=== PATIENT | female | born 1990 | race African-American/Black ===

== ENCOUNTER 2019-03-01 09:06 | Emergency (ER) | payer OTHER ==
[2019-03-01 09:25] VITALS: BP 137/82; PULSE 90; TEMP 99.8; BMI 31.8
--- NOTE | 2019-03-01 10:57 | PDOC ---
History of Present Illness - General Chief Complaint: Cold Symptoms Stated Complaint: COLD SYMPTOMS Time Seen by Provider: 03/01/19 09:59 History Source: Patient Exam Limitations: No Limitations - History of Present Illness Initial Comments: 03/01/19 10:53 19-year-old female complains of chills fever of 102 yesterday along with cough and myalgia. Patient has no other complaints at this time except for mild frontal headache. Other children at home with similar symptoms. Otherwise denies smoking history recent travel recent illness. Is this a multiple visit Asthma Patient?: No Timing/Duration: reports: yesterday Severity: reports: mild Associated Symptoms: reports: cough, fever/chills, headache Past History - Travel Traveled outside of the country in the last 30 days: No Close contact w/someone who was outside of country & ill: No - Past Medical History Allergies/Adverse Reactions: Allergies Allergy/AdvReac Type Severity Reaction Status Date / Time peanut Allergy Severe anaphylacti Verified 03/01/19 09:25 c Home Medications: Ambulatory Orders Ibuprofen [Motrin -] 400 mg PO QID 10/19/14 Anemia: No Asthma: No Cancer: No Cardiac Disorders: No CVA: No COPD: No CHF: No Dementia: No Diabetes: No GI Disorders: No Disorders: No HTN: No Hypercholesterolemia: No Liver Disease: No Seizures: No Thyroid Disease: No - Surgical History Abdominal Surgery: No Appendectomy: No Cardiac Surgery: No Cholecystectomy: No - Reproductive History Expected Date of Delivery: 01/21/12 (#): 3 Para: 2 - Immunization History Immunization Up to Date: Yes - Psycho Social/Smoking Cessation Hx Smoking Status: No Smoking History: Never smoked Have you smoked in the past 12 months: No Number of Cigarettes Smoked Daily: 0 Information on smoking cessation initiated: No Hx Alcohol Use: No Drug/Substance Use Hx: No Substance Use Type: None Hx Substance Use Treatment: No Patient Lives Alone: No Lives with/in: spouse/SO Review of Systems - Review of Systems Able to Perform ROS?: Yes Constitutional: Yes: Fever HEENTM: No: Symptoms Reported Respiratory: Yes: Cough Cardiac (ROS): No: Symptoms Reported ABD/GI: No: Symptoms Reported : No: Symptoms Reported Musculoskeletal: Yes: Joint Pain, Muscle Pain Integumentary: No: Symptoms Reported Neurological: No: Symptoms reported Endocrine: No: Symptoms Reported Hematologic/Lymphatic: No: Symptoms Reported *Physical Exam - Vital Signs Last Vital Signs Temp Pulse Resp BP Pulse Ox 99.8 F H 90 16 137/82 100 03/01/19 09:23 03/01/19 09:23 03/01/19 09:23 03/01/19 09:23 03/01/19 09:23 - Physical Exam General Appearance: Yes: Nourished, Appropriately Dressed. No: Apparent Distress HEENT: negative: Pale Conjunctivae Neck: positive: Supple Respiratory/Chest: positive: Lungs Clear, Normal Breath Sounds. negative: Respiratory Distress Cardiovascular: positive: Regular Rhythm, Regular Rate. negative: Murmur Gastrointestinal/Abdominal: positive: Soft. negative: Tenderness Extremity: positive: Normal Inspection Integumentary: positive: Normal Color, Warm, Moist Neurologic: positive: Motor Strength 5/5 (ambulatory) Medical Decision Making - Medical Decision Making 03/01/19 10:56 Chief complaint: Cough, fever, arthralgia myalgias since yesterday. Similar symptoms with children at home Exam: Vital signs stable lungs clear to auscultation Plan: Influenza swab sent 03/01/19 12:04 Laboratory Tests 03/01/19 10:15 Influenza A (Rapid) Negative Influenza B (Rapid) Positive A Discharge - Discharge Information Problems reviewed: Yes Clinical Impression/Diagnosis: Influenza Condition: Good Disposition: HOME - Follow up/Referral Referrals: Lino Frank MD [Primary Care Provider] - - Patient Discharge Instructions Patient Printed Discharge Instructions: DI for Influenza -- Adult Additional Instructions: Please take Tylenol Motrin for discomfort take Tamiflu as prescribed. Take Robitussin-AC also for cough. Wash hands and cover mouth when coughing. - Post Discharge Activity
== END 2019-03-01 12:08 | disposition home or self-care (01) ==
LOC: JERFT 09:06
DX: J10.1 Influenza due to other identified influenza virus with other respiratory manifestations (principal)
CPT/HCPCS: 87804; 99281-25

== ENCOUNTER 2020-12-29 09:59 | Emergency (ER) | payer OTHER ==
[2020-12-29 10:17] VITALS: BP 172/76; PULSE 79; TEMP 98; BMI 38.9
[2020-12-29] MEDS ORDERED: KETOROLAC TROMETHAMINE 30 MG/1 ML VIAL IVPUSH ONE (10:31)
[2020-12-29] MEDS ORDERED: KETOROLAC TROMETHAMINE 30 MG/1 ML VIAL ONE (10:38)
[2020-12-29 11:26] LABS: BASO % 0.6 % (0-2.0); EOS % 5.6 % (0-4.5); HEMATOCRIT 31.9 % (32.4-45.2); HEMOGLOBIN 10.8 GM/dL (10.7-15.3); LYMPH % 30.5 % (8-40); MCH 25.8 pg (25.7-33.7); MEAN PLT VOLUME 7.9 fl (7.5-11.1); MONO % 5.9 % (3.8-10.2); NEUT % 57.4 % (42.8-82.8); PLATELET COUNT 299 10^3/uL (134-434); RBC 4.19 M/mm3 (3.60-5.2); RDW 16.1 % (11.6-15.6); WHITE BLOOD COUNT 6.1 K/mm3 (4.0-10.0)
[2020-12-29 11:30] LABS: EPI CELLS 29 /uL (0-25.1); HYALINE CASTS 1 /uL (0-3.1); URINE APPEARANCE CLOUDY; URINE BILIRUBIN 1+ (NEGATIVE); URINE COLOR RED; URINE GLUCOSE (UA) NEGATIVE (NEGATIVE); URINE KETONE NEGATIVE (NEGATIVE); URINE LEUK ESTERASE 1+ (NEGATIVE); URINE NITRITE POSITIVE (NEGATIVE); URINE PROTEIN 3+ (NEGATIVE); URINE RBC 44274 /uL (0-23.9); URINE UROBILINOGEN 0.2 mg/dL (0.2-1.0); URINE WBC 46 /uL (0-25.8)
[2020-12-29 11:32] LABS: HCG,QUALITATIVE URINE Negative
[2020-12-29 11:33] LABS: PROTHROMBIN TIME (PATIENT) 11.7 SEC (9.7-13.0)
[2020-12-29 11:46] LABS: ALBUMIN 3.7 g/dl (3.4-5.0)
[2020-12-29 11:49] LABS: CREATININE 1.1 mg/dL (0.55-1.3)
[2020-12-29 11:51] LABS: BILIRUBIN,TOTAL 0.3 mg/dL (0.2-1)
[2020-12-29 16:28] LABS: URINE BACTERIA 0 /uL (0-1359)
== END 2020-12-29 14:07 | disposition home or self-care (01) ==
LOC: JER 09:59
PROC: 3E0333Z Introduction of Anti-inflammatory into Peripheral Vein, Percutaneous Approach (ICD-10-PCS; principal; 2020-12-29)
DX: N39.0 Urinary tract infection, site not specified (principal); R10.84 Generalized abdominal pain; D25.9 Leiomyoma of uterus, unspecified
CPT/HCPCS: 36415; 76856-TC; 80053; 81003; 84703; 85025; 85610; 86850; 86900; 86901; 99284-25

== ENCOUNTER 2021-02-08 09:28 | Inpatient (IN) | payer OTHER ==
[2021-02-08] MEDS ORDERED: ACETAMINOPHEN 1000 MG/100 ML BAG IVPB ONE (11:42)
[2021-02-08] MEDS ORDERED: ONDANSETRON 4 MG/2 ML VIAL IVPUSH ONE (11:42)
[2021-02-08] MEDS ORDERED: ACETAMINOPHEN INJECTION 100 ML IVPB ONE (11:50)
[2021-02-08] MEDS ORDERED: ONDANSETRON 4 MG/2 ML VIAL ONE (11:50)
[2021-02-08 12:47] LABS: BASO % 0.5 % (0-2.0); EOS % 0.5 % (0-4.5); HEMATOCRIT 27.9 % (32.4-45.2); HEMOGLOBIN 9.4 GM/dL (10.7-15.3); LYMPH % 23.8 % (8-40); MCH 24.9 pg (25.7-33.7); MCHC 33.7 g/dl (32.0-36.0); MEAN PLT VOLUME 8.7 fl (7.5-11.1); MONO % 8.3 % (3.8-10.2); NEUT % 66.9 % (42.8-82.8); PLATELET COUNT 233 10^3/uL (134-434); RBC 3.77 M/mm3 (3.60-5.2); RDW 16.5 % (11.6-15.6); WHITE BLOOD COUNT 4.3 K/mm3 (4.0-10.0)
[2021-02-08] MEDS ORDERED: KETOROLAC TROMETHAMINE 15 MG/ML VIAL IVPUSH ONE (13:20)
[2021-02-08] MEDS ORDERED: KETOROLAC TROMETHAMINE 30 MG/1 ML VIAL ONE (13:26)
[2021-02-08 14:20] LABS: BLOOD UREA NITROGEN 29.6 mg/dL (7-18)
[2021-02-08 14:24] LABS: CREATININE 3.1 mg/dL (0.55-1.3)
[2021-02-08] MEDS ORDERED: morphine CARPU-JECT 4 MG/1 ML DISP.SYRIN IVPUSH ONE (15:44)
[2021-02-08] MEDS ORDERED: ACETAMINOPHEN 325 MG TABLET (FP) PO PRN (15:47)
[2021-02-08] MEDS ORDERED: morphine SULFATE 4 MG/ML VIAL ONE (16:07)
[2021-02-08 16:12] LABS: URINE APPEARANCE CLEAR; URINE BILIRUBIN NEGATIVE (NEGATIVE); URINE COLOR YELLOW; URINE GLUCOSE (UA) NEGATIVE (NEGATIVE); URINE KETONE NEGATIVE (NEGATIVE); URINE LEUK ESTERASE NEGATIVE (NEGATIVE); URINE NITRITE NEGATIVE (NEGATIVE); URINE PROTEIN NEGATIVE (NEGATIVE); URINE UROBILINOGEN 0.2 mg/dL (0.2-1.0)
[2021-02-08 16:38] LABS: INR 1.11 (0.83-1.09); PROTHROMBIN TIME (PATIENT) 12.5 SEC (9.7-13.0)
[2021-02-08 16:40] LABS: ACTIVATED PTT 24.4 SECONDS (25.2-36.5)
[2021-02-08] MEDS ORDERED: CEFTRIAXONE 1 GM/50 ML BAG ONE (18:28)
[2021-02-08] MEDS: CEFTRIAXONE 1 GM in DEXTROSE 5%-WATER - 50 ML IVPB SCH (18:34)
[2021-02-09 02:06] VITALS: BMI 42.7
[2021-02-09] MEDS ORDERED: PROPOFOL 20 ML ONE ×2 (08:01)
[2021-02-09] MEDS ORDERED: LIDOCAINE HCL/PF 2% SDV 5ML VIAL ONE (08:01)
[2021-02-09] MEDS ORDERED: DEXAMETHASONE SOD PHOSPHATE 4 MG/1 ML VIAL ONE (08:01)
[2021-02-09] MEDS ORDERED: KETOROLAC TROMETHAMINE 30 MG/1 ML VIAL ONE (08:01)
[2021-02-09] MEDS ORDERED: MIDAZOLAM HCL 2 MG/2 ML SINGLE DOSE VIAL ONE (08:02)
[2021-02-09] MEDS ORDERED: IOHEXOL 180 MG/1 ML ML IJ ONE (09:15)
[2021-02-09] MEDS ORDERED: ONDANSETRON 4 MG/2 ML VIAL IVPUSH PRN (09:38)
[2021-02-09] MEDS ORDERED: ACETAMINOPHEN 1000 MG/100 ML BAG IVPB ONE (09:38)
[2021-02-09] MEDS ORDERED: LABETALOL HCL 5 MG/1 ML (100MG/20 ML VIAL) IVPUSH PRN ×2 (09:40→09:44)
[2021-02-09] MEDS ORDERED: LABETALOL HCL 5 MG/1 ML (100MG/20 ML VIAL) IVPUSH ONE ×3 (09:41→10:20)
[2021-02-09] MEDS: LACTATED RINGERS SOLUTION 1,000 ML IV SCH ×2 (09:45→21:58)
[2021-02-09] MEDS ORDERED: ONDANSETRON 4 MG/2 ML VIAL IVPUSH ONE (09:45)
[2021-02-09] MEDS ORDERED: PROMETHAZINE HCL 25 MG/1 ML VIAL IVPUSH PRN (09:49)
[2021-02-09] MEDS ORDERED: PROMETHAZINE HCL 25 MG/1 ML VIAL IVPUSH ONE (09:55)
[2021-02-09] MEDS ORDERED: PROMETHAZINE HCL 25 MG/1 ML VIAL ONE (09:59)
[2021-02-09] MEDS ORDERED: CHOLECALCIFEROL (VIT D3) 1,000 UNIT (25 MCG) TABLET PO SCH (10:00)
[2021-02-09] MEDS ORDERED: ASCORBIC ACID 500 MG TABLET (FP) PO SCH (10:00)
[2021-02-09] MEDS: CEFTRIAXONE 1 GM in DEXTROSE 5%-WATER - 50 ML IVPB SCH ×2 (10:00→10:43)
[2021-02-09] MEDS ORDERED: cefTRIAXone SODIUM 1 GM VIAL ONE (10:31)
[2021-02-09] MEDS ORDERED: DEXTROSE 5%-WATER - 50 ML IVPB ONE (10:31)
[2021-02-09] MEDS ORDERED: BISACODYL 5 MG TABLET.DR (FP) PO PRN (13:51)
[2021-02-09] MEDS: ACETAMINOPHEN 325 MG TABLET (FP) PO PRN ×2 (14:00→18:23)
[2021-02-09 15:21] LABS: BASO % 0.2 % (0-2.0); HEMATOCRIT 28.1 % (32.4-45.2); HEMOGLOBIN 9.2 GM/dL (10.7-15.3); MCH 24.5 pg (25.7-33.7); MEAN CELL VOLUME 74.4 fl (80-96); MEAN PLT VOLUME 8.5 fl (7.5-11.1); MONO % 4.4 % (3.8-10.2); NEUT % 81.4 % (42.8-82.8); PLATELET COUNT 221 10^3/uL (134-434); RBC 3.77 M/mm3 (3.60-5.2); RDW 16.1 % (11.6-15.6); WHITE BLOOD COUNT 4.1 K/mm3 (4.0-10.0)
[2021-02-09 15:46] LABS: ALBUMIN 3.7 g/dl (3.4-5.0); CALCIUM 8.2 mg/dL (8.5-10.1)
[2021-02-09 15:47] LABS: BLOOD UREA NITROGEN 23.5 mg/dL (7-18)
[2021-02-09 15:49] LABS: CREATININE 2.4 mg/dL (0.55-1.3)
[2021-02-09 15:51] LABS: BILIRUBIN,TOTAL 0.2 mg/dL (0.2-1); TOT PROT 6.9 g/dl (6.4-8.2)
[2021-02-09] MEDS: ONDANSETRON 4 MG/2 ML VIAL IVPUSH PRN (20:59)
[2021-02-09] MEDS: ASCORBIC ACID 500 MG TABLET (FP) PO SCH (21:49)
[2021-02-09] MEDS: POLYETHYLENE GLYCOL (HEALTHYLAX) 3350 17 GM PACKET PO SCH (21:50)
[2021-02-09] MEDS ORDERED: POLYETHYLENE GLYCOL 3350 119 GM BTL PO SCH (22:00)
[2021-02-09] MEDS ORDERED: DOCUSATE SODIUM 100 MG CAPSULE (FP) PO SCH (22:00)
[2021-02-09] MEDS ORDERED: traMADol HCL 50 MG TABLET PO ONE (22:12)
[2021-02-10] MEDS ORDERED: cefTRIAXone SODIUM 1 GM VIAL ONE (09:16)
[2021-02-10] MEDS ORDERED: DEXTROSE 5%-WATER - 50 ML IVPB ONE (09:16)
[2021-02-10] MEDS: CEFTRIAXONE 1 GM in DEXTROSE 5%-WATER - 50 ML IVPB SCH (09:25)
[2021-02-10] MEDS: ASCORBIC ACID 500 MG TABLET (FP) PO SCH (09:26)
[2021-02-10] MEDS: ACETAMINOPHEN 325 MG TABLET (FP) PO PRN (09:26)
[2021-02-10] MEDS: POLYETHYLENE GLYCOL (HEALTHYLAX) 3350 17 GM PACKET PO SCH (09:43)
[2021-02-10 09:44] VITALS: TEMP 99.3
[2021-02-10] MEDS ORDERED: CHOLECALCIFEROL (VIT D3) 1,000 UNIT (25 MCG) TABLET PO SCH (10:00)
[2021-02-10 10:28] LABS: BASO % 0.5 % (0-2.0); EOS % 0.1 % (0-4.5); HEMATOCRIT 29.4 % (32.4-45.2); HEMOGLOBIN 9.6 GM/dL (10.7-15.3); LYMPH % 19.4 % (8-40); MCH 24.2 pg (25.7-33.7); MCHC 32.7 g/dl (32.0-36.0); MEAN CELL VOLUME 73.9 fl (80-96); MEAN PLT VOLUME 8.2 fl (7.5-11.1); MONO % 6.9 % (3.8-10.2); NEUT % 73.1 % (42.8-82.8); PLATELET COUNT 243 10^3/uL (134-434); RBC 3.97 M/mm3 (3.60-5.2); WHITE BLOOD COUNT 5.7 K/mm3 (4.0-10.0)
[2021-02-10 10:48] LABS: ALBUMIN 3.6 g/dl (3.4-5.0); CALCIUM 8.3 mg/dL (8.5-10.1)
[2021-02-10 10:49] LABS: BLOOD UREA NITROGEN 16.5 mg/dL (7-18); MAGNESIUM 1.7 mg/dL (1.8-2.4)
[2021-02-10 10:52] LABS: CREATININE 2.3 mg/dL (0.55-1.3)
[2021-02-10 10:53] LABS: BILIRUBIN,TOTAL 0.4 mg/dL (0.2-1); TOT PROT 7.3 g/dl (6.4-8.2)
[2021-02-10 15:32] VITALS: BP 150/90; PULSE 95
[2021-02-10] MEDS: ONDANSETRON 4 MG/2 ML VIAL IVPUSH PRN (15:37)
[2021-02-10] MEDS ORDERED: MAGNESIUM OXIDE 400 MG TABLET (FP) PO ONE (15:51)
[2021-02-10] MEDS ORDERED: AMOX TR/POT CLAV 500MG/125MG TABLETS (FP) PO SCH (17:30)
== END 2021-02-10 17:36 | disposition home or self-care (01) | DRG 469 ==
LOC: JER 09:28 → JERBED 15:30 → J5S 21:08
PROVIDERS: ADMIT Internal Medicine; ATTEND Nurse Practitioner Acute Care
PROC: 0T788DZ Dilation of Bilateral Ureters with Intraluminal Device, Via Natural or Artificial Opening Endoscopic (ICD-10-PCS; principal; 2021-02-09 08:00)
DX: N17.9 Acute kidney failure, unspecified (principal); E66.01 Morbid (severe) obesity due to excess calories; D50.9 Iron deficiency anemia, unspecified; I10 Essential (primary) hypertension; N13.1 Hydronephrosis with ureteral stricture, not elsewhere classified; D25.9 Leiomyoma of uterus, unspecified; U07.1 COVID-19; D64.9 Anemia, unspecified; Z68.41 Body mass index [BMI] 40.0-44.9, adult
CPT/HCPCS: 36415; 76000-TC-FY; 76775-TC; 80048; 80053; 81003; 82728; 83540; 83550; 83735; 84703; 85025; 85379; 85610; 85730; 86140; 86850; 86900; 86901; 93005; 93010; 94760; 99285-25; C9803; J0131; U0003; U0005

== ENCOUNTER 2021-02-14 12:21 | Inpatient (IN) | payer OTHER ==
[2021-02-14] MEDS ORDERED: ACETAMINOPHEN 1000 MG/100 ML BAG IVPB ONE (14:18)
[2021-02-14] MEDS ORDERED: LACTATED RINGERS SOLUTION 1000 ML INFUS.BAG IV ONE (14:18)
[2021-02-14] MEDS ORDERED: ACETAMINOPHEN INJECTION 100 ML IVPB ONE (14:44)
[2021-02-14 15:57] LABS: PH,URINE 6.5 (5.0-8.0); URINE APPEARANCE CLOUDY; URINE BILIRUBIN NEGATIVE (NEGATIVE); URINE GLUCOSE (UA) NEGATIVE (NEGATIVE); URINE KETONE 1+ (NEGATIVE); URINE LEUK ESTERASE 2+ (NEGATIVE); URINE NITRITE NEGATIVE (NEGATIVE); URINE PROTEIN 4+ (NEGATIVE)
[2021-02-14 16:10] LABS: EPI CELLS FEW /uL (0-25.1); URINE BACTERIA 2+ /uL (0-1359); URINE COLOR RED; URINE RBC >100 /uL (0-23.9); URINE WBC 20-30 /uL (0-25.8)
[2021-02-14 16:16] LABS: BASO % 0.2 % (0-2.0); EOS % 0.1 % (0-4.5); HEMATOCRIT 34.9 % (32.4-45.2); HEMOGLOBIN 11.5 GM/dL (10.7-15.3); LYMPH % 17.3 % (8-40); MCH 24.1 pg (25.7-33.7); MCHC 33.1 g/dl (32.0-36.0); MEAN CELL VOLUME 72.8 fl (80-96); MONO % 5.9 % (3.8-10.2); NEUT % 76.5 % (42.8-82.8); RDW 15.9 % (11.6-15.6); WHITE BLOOD COUNT 6.9 K/mm3 (4.0-10.0)
[2021-02-14 16:23] LABS: INR 1.05 (0.83-1.09); PROTHROMBIN TIME (PATIENT) 12.1 SEC (9.7-13.0)
[2021-02-14] MEDS ORDERED: PIPERACILLIN/TAZOB 4.5 GM 4.5 GM in DEXTROSE 5%-WATER 100 ML IVPB ONE (16:23)
[2021-02-14 16:25] LABS: ACTIVATED PTT 22.8 SECONDS (25.2-36.5)
[2021-02-14 16:29] LABS: ALBUMIN 4.2 g/dl (3.4-5.0); MAGNESIUM 2.2 mg/dL (1.8-2.4)
[2021-02-14 16:32] LABS: CREATININE 1.8 mg/dL (0.55-1.3); PHOSPHOROUS 3.1 mg/dL (2.5-4.9)
[2021-02-14 16:33] LABS: TOT PROT 8.6 g/dl (6.4-8.2)
[2021-02-14 16:34] LABS: BILIRUBIN,TOTAL 0.7 mg/dL (0.2-1)
[2021-02-14 17:20] LABS: PLATELET ESTIMATE NORMAL
[2021-02-14 17:21] LABS: MEAN PLT VOLUME 9.1 fl (7.5-11.1); PLATELET COUNT 295 10^3/uL (134-434)
[2021-02-14] MEDS ORDERED: ONDANSETRON 4 MG/2 ML VIAL IVPUSH ONE (17:22)
[2021-02-14] MEDS ORDERED: ONDANSETRON 4 MG/2 ML VIAL ONE (17:46)
[2021-02-14] MEDS ORDERED: KCL 10 MEQ IVPB 10 MEQ/100 ML INFUS.BAG IVPB ONE (22:42)
[2021-02-14] MEDS ORDERED: PROCHLORPERAZINE MALEATE 5 MG TABLET ONE (22:42)
[2021-02-14] MEDS: SODIUM CHLORIDE 1,000 ML IV SCH (22:51)
[2021-02-14] MEDS: KCL 10 MEQ IVPB 10 MEQ/100 ML INFUS.BAG IVPB SCH (22:51)
[2021-02-14] MEDS: PROCHLORPERAZINE MALEATE 5 MG TABLET PO PRN (22:51)
[2021-02-15] MEDS ORDERED: PIPERACILLIN/TAZOB 3.375 GM 3.375 GM/50 ML BAG IVPB ONE ×4 (01:19→22:07)
[2021-02-15] MEDS ORDERED: KCL 10 MEQ IVPB 20 MEQ/200 ML INFUS.BAG IVPB ONE (01:19)
[2021-02-15] MEDS: KCL 10 MEQ IVPB 10 MEQ/100 ML INFUS.BAG IVPB SCH ×2 (01:37→03:13)
[2021-02-15] MEDS ORDERED: ACETAMINOPHEN 325 MG TABLET (FP) ONE (02:53)
[2021-02-15] MEDS ORDERED: PROCHLORPERAZINE MALEATE 5 MG TABLET ONE ×3 (02:54→22:06)
[2021-02-15] MEDS: PROCHLORPERAZINE MALEATE 5 MG TABLET PO PRN ×2 (03:14→18:00)
[2021-02-15] MEDS: PIPERACILLIN/TAZOB 3.375 GM 3.375 GM in DEXTROSE 5%-WATER - 50 ML IVPB SCH ×4 (04:08→22:22)
[2021-02-15 08:14] LABS: BASO % 0.4 % (0-2.0); EOS % 7.6 % (0-4.5); HEMATOCRIT 31.6 % (32.4-45.2); HEMOGLOBIN 10.6 GM/dL (10.7-15.3); MCH 24.3 pg (25.7-33.7); MCHC 33.5 g/dl (32.0-36.0); MEAN CELL VOLUME 72.6 fl (80-96); MEAN PLT VOLUME 8.6 fl (7.5-11.1); MONO % 7.1 % (3.8-10.2); NEUT % 52.9 % (42.8-82.8); PLATELET COUNT 270 10^3/uL (134-434); RBC 4.35 M/mm3 (3.60-5.2); RDW 15.8 % (11.6-15.6); WHITE BLOOD COUNT 5.4 K/mm3 (4.0-10.0)
[2021-02-15 08:50] LABS: ALBUMIN 3.8 g/dl (3.4-5.0)
[2021-02-15 08:51] LABS: CALCIUM 8.6 mg/dL (8.5-10.1); MAGNESIUM 2.2 mg/dL (1.8-2.4)
[2021-02-15 08:54] LABS: CREATININE 1.6 mg/dL (0.55-1.3); PHOSPHOROUS 3.4 mg/dL (2.5-4.9)
[2021-02-15 08:55] LABS: BILIRUBIN,TOTAL 0.8 mg/dL (0.2-1); TOT PROT 7.5 g/dl (6.4-8.2)
[2021-02-15] MEDS: FUROSEMIDE 20 MG TABLET (FP) PO SCH (09:20)
[2021-02-15] MEDS ORDERED: ACETAMINOPHEN 1000 MG/100 ML BAG IVPB ONE (10:00)
[2021-02-15] MEDS ORDERED: oxyCODONE HCL 5 MG TABLET PO PRN (10:01)
[2021-02-15] MEDS ORDERED: oxyCODONE HCL 5 MG TABLET ONE (22:07)
[2021-02-15] MEDS ORDERED: HEPARIN NA (PORCINE) 5,000 UNITS/ML 1ML VIAL ONE (22:07)
[2021-02-15] MEDS: HEPARIN NA (PORCINE) 5,000 UNITS/ML 1ML VIAL SQ SCH (22:22)
[2021-02-15] MEDS: SODIUM CHLORIDE 1,000 ML IV SCH (22:22)
[2021-02-16 00:19] VITALS: BMI 40.0
[2021-02-16] MEDS: PROCHLORPERAZINE MALEATE 5 MG TABLET PO PRN ×4 (00:28→22:28)
[2021-02-16] MEDS ORDERED: DEXTROSE 5%-WATER - 50 ML IVPB ONE ×4 (02:29→21:25)
[2021-02-16] MEDS ORDERED: PIPERACILLIN/TAZOBACTAM 3.375 GM VIAL IVPB ONE ×4 (02:29→21:25)
[2021-02-16] MEDS: PIPERACILLIN/TAZOB 3.375 GM 3.375 GM in DEXTROSE 5%-WATER - 50 ML IVPB SCH ×4 (02:38→22:01)
[2021-02-16] MEDS ORDERED: IBUPROFEN 400 MG TABLET (FP) PO ONE (04:17)
[2021-02-16] MEDS: HEPARIN NA (PORCINE) 5,000 UNITS/ML 1ML VIAL SQ SCH ×2 (09:43→21:59)
[2021-02-16] MEDS: FUROSEMIDE 20 MG TABLET (FP) PO SCH (09:44)
[2021-02-16 12:56] LABS: BASO % 0.5 % (0-2.0); HEMATOCRIT 29.5 % (32.4-45.2); HEMOGLOBIN 10.4 GM/dL (10.7-15.3); LYMPH % 30.2 % (8-40); MCH 25.3 pg (25.7-33.7); MCHC 35.1 g/dl (32.0-36.0); MEAN CELL VOLUME 72.2 fl (80-96); MEAN PLT VOLUME 7.9 fl (7.5-11.1); MONO % 6.5 % (3.8-10.2); NEUT % 50.8 % (42.8-82.8); PLATELET COUNT 251 10^3/uL (134-434); RBC 4.09 M/mm3 (3.60-5.2)
[2021-02-16 13:19] LABS: CALCIUM 8.6 mg/dL (8.5-10.1)
[2021-02-16 13:20] LABS: ALBUMIN 3.7 g/dl (3.4-5.0); BLOOD UREA NITROGEN 13.3 mg/dL (7-18); MAGNESIUM 1.9 mg/dL (1.8-2.4)
[2021-02-16 13:23] LABS: CREATININE 1.5 mg/dL (0.55-1.3)
[2021-02-16 13:24] LABS: BILIRUBIN,TOTAL 0.7 mg/dL (0.2-1); TOT PROT 7.4 g/dl (6.4-8.2)
[2021-02-16] MEDS ORDERED: PANTOPRAZOLE SODIUM 40 MG in SODIUM CHLORIDE 100 ML IVPB SCH (13:45)
[2021-02-16] MEDS ORDERED: POTASSIUM CHLORIDE TABS 20 MEQ TABLET.ER (FP) PO ONE (13:46)
[2021-02-16] MEDS ORDERED: PANTOPRAZOLE SODIUM 40 MG VIAL IVPB SCH (14:00)
[2021-02-16] MEDS ORDERED: PROCHLORPERAZINE MALEATE 5 MG TABLET PO SCH (14:00)
[2021-02-16] MEDS: PANTOPRAZOLE SODIUM 40 MG VIAL IVPB SCH (15:02)
[2021-02-16] MEDS: SODIUM CHLORIDE 1,000 ML IV SCH (15:02)
[2021-02-16] MEDS ORDERED: traMADol HCL 50 MG TABLET PO ONE (20:40)
[2021-02-16] MEDS: POTASSIUM CHLORIDE TABS 20 MEQ TABLET.ER (FP) PO SCH (22:03)
[2021-02-17] MEDS: PROCHLORPERAZINE MALEATE 5 MG TABLET PO PRN ×5 (01:31→22:11)
[2021-02-17] MEDS ORDERED: PIPERACILLIN/TAZOBACTAM 3.375 GM VIAL IVPB ONE ×4 (02:21→21:07)
[2021-02-17] MEDS ORDERED: DEXTROSE 5%-WATER - 50 ML IVPB ONE ×4 (02:22→21:07)
[2021-02-17] MEDS: PIPERACILLIN/TAZOB 3.375 GM 3.375 GM in DEXTROSE 5%-WATER - 50 ML IVPB SCH ×4 (03:47→22:05)
[2021-02-17] MEDS ORDERED: IBUPROFEN 400 MG TABLET (FP) PO PRN (09:18)
[2021-02-17] MEDS: HEPARIN NA (PORCINE) 5,000 UNITS/ML 1ML VIAL SQ SCH ×2 (09:48→22:05)
[2021-02-17] MEDS: FUROSEMIDE 20 MG TABLET (FP) PO SCH (09:49)
[2021-02-17] MEDS: POTASSIUM CHLORIDE TABS 20 MEQ TABLET.ER (FP) PO SCH ×2 (09:49→22:05)
[2021-02-17] MEDS: PANTOPRAZOLE SODIUM 40 MG VIAL IVPB SCH (09:49)
[2021-02-17] MEDS: SODIUM CHLORIDE 1,000 ML IV SCH (10:36)
[2021-02-17 17:40] LABS: BASO % 0.3 % (0-2.0); EOS % 7.7 % (0-4.5); HEMOGLOBIN 10.3 GM/dL (10.7-15.3); LYMPH % 26.8 % (8-40); MCHC 34.3 g/dl (32.0-36.0); MEAN CELL VOLUME 73.1 fl (80-96); MEAN PLT VOLUME 8.4 fl (7.5-11.1); MONO % 5.7 % (3.8-10.2); NEUT % 59.5 % (42.8-82.8); PLATELET COUNT 267 10^3/uL (134-434); RDW 15.5 % (11.6-15.6); WHITE BLOOD COUNT 6.2 K/mm3 (4.0-10.0)
[2021-02-17] MEDS ORDERED: POTASSIUM CHLORIDE TABS 20 MEQ TABLET.ER (FP) PO ONE (18:00)
[2021-02-17 18:03] LABS: CALCIUM 8.5 mg/dL (8.5-10.1)
[2021-02-17 18:04] LABS: ALBUMIN 3.6 g/dl (3.4-5.0); BLOOD UREA NITROGEN 9.9 mg/dL (7-18); MAGNESIUM 1.9 mg/dL (1.8-2.4)
[2021-02-17 18:08] LABS: BILIRUBIN,TOTAL 0.8 mg/dL (0.2-1)
[2021-02-17 18:09] LABS: TOT PROT 7.3 g/dl (6.4-8.2)
[2021-02-17 18:10] LABS: CREATININE 1.4 mg/dL (0.55-1.3)
[2021-02-18] MEDS: PROCHLORPERAZINE MALEATE 5 MG TABLET PO PRN (03:00)
[2021-02-18] MEDS ORDERED: PIPERACILLIN/TAZOBACTAM 3.375 GM VIAL IVPB ONE ×2 (03:07→09:01)
[2021-02-18] MEDS ORDERED: DEXTROSE 5%-WATER - 50 ML IVPB ONE ×2 (03:07→09:02)
[2021-02-18] MEDS: PIPERACILLIN/TAZOB 3.375 GM 3.375 GM in DEXTROSE 5%-WATER - 50 ML IVPB SCH ×2 (03:15→09:17)
[2021-02-18] MEDS: FUROSEMIDE 20 MG TABLET (FP) PO SCH (09:17)
[2021-02-18 09:18] LABS: BASO % 0.3 % (0-2.0); EOS % 6.7 % (0-4.5); HEMATOCRIT 30.2 % (32.4-45.2); HEMOGLOBIN 10.1 GM/dL (10.7-15.3); LYMPH % 24.4 % (8-40); MCH 24.3 pg (25.7-33.7); MCHC 33.3 g/dl (32.0-36.0); MEAN CELL VOLUME 72.9 fl (80-96); MEAN PLT VOLUME 8.5 fl (7.5-11.1); MONO % 5.2 % (3.8-10.2); NEUT % 63.4 % (42.8-82.8); PLATELET COUNT 277 10^3/uL (134-434); RBC 4.15 M/mm3 (3.60-5.2); RDW 15.2 % (11.6-15.6); WHITE BLOOD COUNT 6.9 K/mm3 (4.0-10.0)
[2021-02-18] MEDS: HEPARIN NA (PORCINE) 5,000 UNITS/ML 1ML VIAL SQ SCH (09:18)
[2021-02-18] MEDS: POTASSIUM CHLORIDE TABS 20 MEQ TABLET.ER (FP) PO SCH (09:18)
[2021-02-18] MEDS: PANTOPRAZOLE SODIUM 40 MG VIAL IVPB SCH (09:19)
[2021-02-18 10:02] LABS: ALBUMIN 3.4 g/dl (3.4-5.0); BILIRUBIN,TOTAL 1.2 mg/dL (0.2-1); BLOOD UREA NITROGEN 7.5 mg/dL (7-18); CALCIUM 8.7 mg/dL (8.5-10.1); CREATININE 1.3 mg/dL (0.55-1.3); MAGNESIUM 1.9 mg/dL (1.8-2.4); TOT PROT 7.1 g/dl (6.4-8.2)
[2021-02-18 12:16] VITALS: BP 130/78; PULSE 82; TEMP 98
== END 2021-02-18 14:46 | disposition left against medical advice (07) | DRG 720 ==
LOC: JER 12:21 → JERBED 19:49 → J6S 02-15 23:03
PROVIDERS: ADMIT Hospitalist; ATTEND Nurse Practitioner Family
DX: A41.9 Sepsis, unspecified organism (principal); K92.0 Hematemesis; N17.9 Acute kidney failure, unspecified; E66.01 Morbid (severe) obesity due to excess calories; N13.30 Unspecified hydronephrosis; Z68.41 Body mass index [BMI] 40.0-44.9, adult; D25.9 Leiomyoma of uterus, unspecified; N39.0 Urinary tract infection, site not specified; R74.01 Elevation of levels of liver transaminase levels; E87.6 Hypokalemia
CPT/HCPCS: 36415; 71045-TC-FY; 74176-TC; 80053; 81003; 82728; 83605; 83615; 83735; 84100; 84703; 85025; 85379; 85610; 85651; 85730; 86140; 87040; 87086; 87186; 87804; 87807; 93005; 93010; 99285-25; C9803-CS; J1644; U0003; U0005

== ENCOUNTER 2021-05-04 19:09 | Emergency (ER) | payer OTHER ==
[2021-05-04 19:30] VITALS: BP 122/86; PULSE 83; TEMP 97.8; BMI 40.0
[2021-05-04 20:59] LABS: HCG,QUALITATIVE URINE Negative
[2021-05-04 21:00] LABS: EPI CELLS 7 /uL (0-25.1); HYALINE CASTS 1 /uL (0-3.1); URINE APPEARANCE CLEAR; URINE BACTERIA 163 /uL (0-1359); URINE BILIRUBIN NEGATIVE (NEGATIVE); URINE COLOR YELLOW; URINE GLUCOSE (UA) NEGATIVE (NEGATIVE); URINE KETONE NEGATIVE (NEGATIVE); URINE LEUK ESTERASE 3+ (NEGATIVE); URINE NITRITE NEGATIVE (NEGATIVE); URINE PROTEIN NEGATIVE (NEGATIVE); URINE RBC 36 /uL (0-23.9); URINE UROBILINOGEN 0.2 mg/dL (0.2-1.0); URINE WBC 290 /uL (0-25.8)
[2021-05-04] MEDS ORDERED: ACETAMINOPHEN WITH CODEINE 300MG/30MG TABLET PO ONE (22:48)
[2021-05-04] MEDS ORDERED: ACETAMINOPHEN WITH CODEINE 300MG/30MG TABLET ONE (22:55)
[2021-05-04 23:30] LABS: BASO % 1.2 % (0-2.0); EOS % 5.8 % (0-4.5); HEMATOCRIT 28.4 % (32.4-45.2); HEMOGLOBIN 9.7 GM/dL (10.7-15.3); LYMPH % 40.1 % (8-40); MCH 25.3 pg (25.7-33.7); MEAN CELL VOLUME 74.4 fl (80-96); MEAN PLT VOLUME 7.8 fl (7.5-11.1); MONO % 5.8 % (3.8-10.2); NEUT % 47.1 % (42.8-82.8); PLATELET COUNT 345 10^3/uL (134-434); RBC 3.81 M/mm3 (3.60-5.2); WHITE BLOOD COUNT 6.2 K/mm3 (4.0-10.0)
[2021-05-04 23:43] LABS: INR 1.04 (0.83-1.09)
[2021-05-04 23:45] LABS: ACTIVATED PTT 31.8 SECONDS (25.2-36.5)
[2021-05-04 23:56] LABS: CALCIUM 8.9 mg/dL (8.5-10.1)
[2021-05-04 23:57] LABS: ALBUMIN 3.8 g/dl (3.4-5.0); BLOOD UREA NITROGEN 15.2 mg/dL (7-18)
[2021-05-05] LABS: CREATININE 1.2 mg/dL (0.55-1.3)
[2021-05-05 00:01] LABS: TOT PROT 7.6 g/dl (6.4-8.2)
[2021-05-05 00:02] LABS: BILIRUBIN,TOTAL 0.2 mg/dL (0.2-1)
== END 2021-05-05 00:44 | disposition left against medical advice (07) ==
LOC: JER 19:09
DX: N31.1 Reflex neuropathic bladder, not elsewhere classified (principal); R10.9 Unspecified abdominal pain
CPT/HCPCS: 36415; 76775-TC; 80053; 81003; 84703; 85025; 85610; 85730; 86850; 86900; 86901; 87077; 87086; 99284-25; C9803-CS; U0003; U0005

== ENCOUNTER 2021-07-10 05:50 | Inpatient (IN) | payer OTHER ==
[2021-07-10] MEDS ORDERED: SODIUM CHLORIDE 0.9% 500 ML INFUS.BAG IV ONE (07:26)
[2021-07-10] MEDS ORDERED: morphine CARPU-JECT 4 MG/1 ML DISP.SYRIN IVPUSH ONE ×2 (07:27→11:25)
[2021-07-10] MEDS ORDERED: ACETAMINOPHEN 1000 MG/100 ML BAG IVPB ONE (07:27)
[2021-07-10] MEDS ORDERED: ONDANSETRON 4 MG/2 ML VIAL IVPUSH ONE ×3 (07:27→23:14)
[2021-07-10] MEDS ORDERED: ONDANSETRON 4 MG/2 ML VIAL ONE ×3 (08:10→23:54)
[2021-07-10] MEDS ORDERED: ACETAMINOPHEN INJECTION 100 ML IVPB ONE (08:10)
[2021-07-10] MEDS ORDERED: morphine SULFATE 4 MG/ML VIAL ONE ×2 (08:10→11:32)
[2021-07-10 09:39] LABS: EPI CELLS 18 /uL (0-25.1); HYALINE CASTS 1 /uL (0-3.1); URINE APPEARANCE CLOUDY; URINE BACTERIA 705 /uL (0-1359); URINE BILIRUBIN NEGATIVE (NEGATIVE); URINE COLOR YELLOW; URINE GLUCOSE (UA) NEGATIVE (NEGATIVE); URINE KETONE NEGATIVE (NEGATIVE); URINE LEUK ESTERASE 3+ (NEGATIVE); URINE NITRITE NEGATIVE (NEGATIVE); URINE PROTEIN 1+ (NEGATIVE); URINE RBC 24 /uL (0-23.9); URINE UROBILINOGEN 0.2 mg/dL (0.2-1.0); URINE WBC 1114 /uL (0-25.8)
[2021-07-10 09:49] LABS: HEMATOCRIT 20.5 % (32.4-45.2); MCH 23.6 pg (25.7-33.7); MEAN CELL VOLUME 69.2 fl (80-96); MEAN PLT VOLUME 7.5 fl (7.5-11.1); PLATELET COUNT 562 10^3/uL (134-434); RBC 2.96 M/mm3 (3.60-5.2); RDW 17.9 % (11.6-15.6); WHITE BLOOD COUNT 14.3 K/mm3 (4.0-10.0)
[2021-07-10 09:58] LABS: BLOOD UREA NITROGEN 15.6 mg/dL (7-18); CALCIUM 9.1 mg/dL (8.5-10.1)
[2021-07-10 10:01] LABS: CREATININE 1.9 mg/dL (0.55-1.3)
[2021-07-10 10:03] LABS: BILIRUBIN,TOTAL 0.5 mg/dL (0.2-1); TOT PROT 7.4 g/dl (6.4-8.2)
[2021-07-10 10:25] LABS: ANISOCYTOSIS 2+; MACROCYTOSIS 0
[2021-07-10] MEDS ORDERED: CEFTRIAXONE 2 GM-D5W BAG 2 GM/50 ML BAG IVPB ONE (12:36)
[2021-07-10] MEDS ORDERED: CEFTRIAXONE 2 GM/100 ML BAG IVPB ONE (12:45)
[2021-07-10] MEDS ORDERED: morphine CARPU-JECT 2 MG/1 ML DISP.SYRIN IVPUSH ONE (14:57)
[2021-07-10] MEDS ORDERED: METOCLOPRAMIDE HCL INJECTION 10 MG/2 ML VIAL IVPUSH ONE (15:54)
[2021-07-10] MEDS ORDERED: METOCLOPRAMIDE HCL INJECTION 10 MG/2 ML VIAL ONE (15:57)
[2021-07-10] MEDS ORDERED: HYDROmorphone HCL CARPU-JECT 2 MG/1 ML DISP.SYRIN IVPB PRN (17:36)
[2021-07-10] MEDS ORDERED: SODIUM CHLORIDE 1,000 ML IV SCH (17:45)
[2021-07-10 18:00] LABS: INR 1.14 (0.83-1.09); PROTHROMBIN TIME (PATIENT) 13.1 SEC (9.7-13.0)
[2021-07-10] MEDS ORDERED: HYDROmorphone HCl 2 MG/ML VIAL ONE ×2 (18:54→23:54)
[2021-07-10] MEDS: HYDROmorphone HCl 2 MG/ML VIAL IVPB PRN (19:10)
[2021-07-11] MEDS: HYDROmorphone HCl 2 MG/ML VIAL IVPB PRN ×3 (00:02→22:46)
[2021-07-11 07:35] LABS: CALCIUM 8.4 mg/dL (8.5-10.1)
[2021-07-11 07:36] LABS: ALBUMIN 2.7 g/dl (3.4-5.0); BLOOD UREA NITROGEN 13.8 mg/dL (7-18); INR 1.15 (0.83-1.09); MAGNESIUM 2.1 mg/dL (1.8-2.4); PROTHROMBIN TIME (PATIENT) 13.2 SEC (9.7-13.0)
[2021-07-11 07:38] LABS: ACTIVATED PTT 29.5 SECONDS (25.2-36.5); CREATININE 1.7 mg/dL (0.55-1.3); HEMATOCRIT 22.1 % (32.4-45.2); HEMOGLOBIN 7.4 GM/dL (10.7-15.3); MCH 24.1 pg (25.7-33.7); MCHC 33.5 g/dl (32.0-36.0); MEAN CELL VOLUME 71.8 fl (80-96); PHOSPHOROUS 4.2 mg/dL (2.5-4.9); PLATELET COUNT 499 10^3/uL (134-434); RBC 3.08 M/mm3 (3.60-5.2); RDW 18.8 % (11.6-15.6); WHITE BLOOD COUNT 12.4 K/mm3 (4.0-10.0)
[2021-07-11 07:40] LABS: BILIRUBIN,TOTAL 0.8 mg/dL (0.2-1); TOT PROT 6.8 g/dl (6.4-8.2)
[2021-07-11] MEDS ORDERED: ONDANSETRON 4 MG/2 ML VIAL IVPUSH PRN ×2 (08:47→14:26)
[2021-07-11] MEDS ORDERED: LACTATED RINGERS SOLUTION 1,000 ML/1,000 ML INFUS.BAG IV SCH ×2 (09:00→14:16)
[2021-07-11] MEDS ORDERED: ONDANSETRON 4 MG/2 ML VIAL ONE (09:15)
[2021-07-11] MEDS ORDERED: HYDROmorphone HCl 2 MG/ML VIAL ONE (09:24)
[2021-07-11] MEDS ORDERED: CEFTRIAXONE 1 GM in DEXTROSE 5%-WATER - 50 ML IVPB SCH (10:00)
[2021-07-11] MEDS ORDERED: cefTRIAXone SODIUM 1 GM VIAL ONE (11:23)
[2021-07-11] MEDS ORDERED: DEXTROSE 5%-WATER - 50 ML IVPB ONE (11:23)
[2021-07-11 11:46] VITALS: BMI 42.3
[2021-07-11] MEDS ORDERED: GENTAMICIN SO4 80 MG/2 ML VIAL ONE (13:18)
[2021-07-11] MEDS ORDERED: GENTAMICIN SO4 80 MG/2 ML VIAL IVPB ONE (13:20)
[2021-07-11] MEDS ORDERED: MIDAZOLAM HCL 2 MG/2 ML SINGLE DOSE VIAL ONE (13:22)
[2021-07-11] MEDS ORDERED: FENTANYL CITRATE/PF 50 MCG/ML VIAL ONE ×6 (13:23→15:02)
[2021-07-11] MEDS ORDERED: PROPOFOL 20 ML ONE ×2 (13:23→13:25)
[2021-07-11] MEDS ORDERED: DEXAMETHASONE SOD PHOSPHATE 4 MG/1 ML VIAL ONE (13:33)
[2021-07-11] MEDS ORDERED: LIDOCAINE HCL/PF 2% SDV 5ML VIAL ONE (13:42)
[2021-07-11] MEDS ORDERED: LACTATED RINGERS SOLUTION 1,000 ML IV SCH (14:30)
[2021-07-11] MEDS: ONDANSETRON 4 MG/2 ML VIAL IVPUSH PRN (21:14)
[2021-07-12] MEDS: HYDROmorphone HCl 2 MG/ML VIAL IVPB PRN ×2 (02:44→07:44)
[2021-07-12] MEDS: ONDANSETRON 4 MG/2 ML VIAL IVPUSH PRN (06:13)
[2021-07-12] MEDS ORDERED: cefTRIAXone SODIUM 1 GM VIAL ONE (08:53)
[2021-07-12] MEDS ORDERED: DEXTROSE 5%-WATER - 50 ML IVPB ONE (08:53)
[2021-07-12] MEDS: FERROUS SO4 325 MG TABLET (FP) PO SCH (09:06)
[2021-07-12] MEDS ORDERED: oxyCODONE HCL 5 MG TABLET PO PRN (09:47)
[2021-07-12] MEDS ORDERED: CEFTRIAXONE 1 GM in DEXTROSE 5%-WATER - 50 ML IVPB SCH (10:00)
[2021-07-12] MEDS ORDERED: ACETAMINOPHEN 1000 MG/100 ML BAG IVPB ONE (10:15)
[2021-07-12 12:39] LABS: HEMATOCRIT 23.7 % (32.4-45.2); HEMOGLOBIN 7.7 GM/dL (10.7-15.3); MCH 23.4 pg (25.7-33.7); MCHC 32.6 g/dl (32.0-36.0); MEAN CELL VOLUME 71.7 fl (80-96); MEAN PLT VOLUME 6.8 fl (7.5-11.1); PLATELET COUNT 576 10^3/uL (134-434); RBC 3.31 M/mm3 (3.60-5.2); RDW 18.8 % (11.6-15.6); WHITE BLOOD COUNT 14.1 K/mm3 (4.0-10.0)
[2021-07-12] MEDS ORDERED: FOSAPREPITANT DIMEGLUMINE 150 MG in SODIUM CHLORIDE 145 ML IVPB ONE (13:00)
[2021-07-12 13:09] LABS: ALBUMIN 2.9 g/dl (3.4-5.0); BLOOD UREA NITROGEN 12.8 mg/dL (7-18); CALCIUM 8.8 mg/dL (8.5-10.1); MAGNESIUM 2.5 mg/dL (1.8-2.4)
[2021-07-12 13:13] LABS: CREATININE 1.7 mg/dL (0.55-1.3); TOT PROT 7.4 g/dl (6.4-8.2)
[2021-07-12 13:17] LABS: BILIRUBIN,TOTAL 0.3 mg/dL (0.2-1)
[2021-07-12] MEDS ORDERED: MEROPENEM 1 GM VIAL (RESTRICTED TO ID) IVPB ONE (13:57)
[2021-07-12] MEDS ORDERED: DEXTROSE 5%-WATER 100 ML IVPB ONE (13:57)
[2021-07-12] MEDS: POTASSIUM CHLORIDE 10 MEQ in SODIUM CHLORIDE 0.45% 1,000 ML IVPB SCH (15:50)
[2021-07-12] MEDS: MEROPENEM 1 GM in DEXTROSE 5%-WATER 100 ML IVPB SCH ×2 (15:55→17:38)
[2021-07-12] MEDS: DOCUSATE SODIUM 100 MG CAPSULE (FP) PO SCH (21:41)
[2021-07-12] MEDS: oxyCODONE HCL 5 MG TABLET PO PRN (21:41)
[2021-07-13] MEDS ORDERED: DEXTROSE 5%-WATER 100 ML IVPB ONE ×3 (00:49→19:01)
[2021-07-13] MEDS ORDERED: MEROPENEM 1 GM VIAL (RESTRICTED TO ID) IVPB ONE ×3 (00:49→19:01)
[2021-07-13] MEDS: MEROPENEM 1 GM in DEXTROSE 5%-WATER 100 ML IVPB SCH ×3 (01:24→19:05)
[2021-07-13] MEDS: oxyCODONE HCL 5 MG TABLET PO PRN ×5 (03:48→23:10)
[2021-07-13] MEDS: POTASSIUM CHLORIDE 10 MEQ in SODIUM CHLORIDE 0.45% 1,000 ML IVPB SCH ×2 (04:34→10:51)
[2021-07-13 08:32] LABS: HEMATOCRIT 22.4 % (32.4-45.2); HEMOGLOBIN 7.5 GM/dL (10.7-15.3); MCH 23.8 pg (25.7-33.7); MCHC 33.6 g/dl (32.0-36.0); MEAN PLT VOLUME 6.5 fl (7.5-11.1); PLATELET COUNT 543 10^3/uL (134-434); RBC 3.16 M/mm3 (3.60-5.2); RDW 18.8 % (11.6-15.6); WHITE BLOOD COUNT 12.9 K/mm3 (4.0-10.0)
[2021-07-13 08:37] LABS: ALBUMIN 2.6 g/dl (3.4-5.0); BLOOD UREA NITROGEN 11.5 mg/dL (7-18); CALCIUM 8.3 mg/dL (8.5-10.1); MAGNESIUM 2.2 mg/dL (1.8-2.4)
[2021-07-13 08:41] LABS: CREATININE 1.7 mg/dL (0.55-1.3)
[2021-07-13 08:43] LABS: BILIRUBIN,TOTAL 0.2 mg/dL (0.2-1); TOT PROT 6.8 g/dl (6.4-8.2)
[2021-07-13] MEDS: ONDANSETRON 4 MG/2 ML VIAL IVPUSH PRN ×2 (08:54→19:06)
[2021-07-13 10:00] LABS: ANISOCYTOSIS 1+; PLATELET ESTIMATE INCREASED
[2021-07-13] MEDS: FERROUS SO4 325 MG TABLET (FP) PO SCH (10:51)
[2021-07-13] MEDS: POTASSIUM CHLORIDE TABS 20 MEQ TABLET.ER (FP) PO SCH ×2 (10:51→23:09)
[2021-07-13] MEDS: DOCUSATE SODIUM 100 MG CAPSULE (FP) PO SCH (21:54)
[2021-07-14] MEDS ORDERED: DEXTROSE 5%-WATER 100 ML IVPB ONE ×3 (01:43→17:51)
[2021-07-14] MEDS ORDERED: MEROPENEM 1 GM VIAL (RESTRICTED TO ID) IVPB ONE ×3 (01:43→17:51)
[2021-07-14] MEDS: MEROPENEM 1 GM in DEXTROSE 5%-WATER 100 ML IVPB SCH ×3 (01:45→17:58)
[2021-07-14] MEDS: oxyCODONE HCL 5 MG TABLET PO PRN ×3 (04:28→22:18)
[2021-07-14] MEDS: ACETAMINOPHEN 500 MG TABLET (FP) PO PRN ×2 (06:41→18:20)
[2021-07-14 08:08] LABS: BASO % 0.4 % (0-2.0); EOS % 1.7 % (0-4.5); HEMATOCRIT 22.8 % (32.4-45.2); HEMOGLOBIN 7.5 GM/dL (10.7-15.3); LYMPH % 11.6 % (8-40); MCH 23.8 pg (25.7-33.7); MCHC 33.1 g/dl (32.0-36.0); MEAN CELL VOLUME 71.8 fl (80-96); MEAN PLT VOLUME 6.5 fl (7.5-11.1); NEUT % 83.3 % (42.8-82.8); PLATELET COUNT 534 10^3/uL (134-434); RBC 3.17 M/mm3 (3.60-5.2); RDW 18.7 % (11.6-15.6); WHITE BLOOD COUNT 15.3 K/mm3 (4.0-10.0)
[2021-07-14 08:51] LABS: ALBUMIN 2.6 g/dl (3.4-5.0); BLOOD UREA NITROGEN 11.5 mg/dL (7-18); CALCIUM 8.5 mg/dL (8.5-10.1)
[2021-07-14 08:55] LABS: BILIRUBIN,TOTAL 0.4 mg/dL (0.2-1); CREATININE 1.7 mg/dL (0.55-1.3); TOT PROT 6.8 g/dl (6.4-8.2)
[2021-07-14] MEDS: FERROUS SO4 325 MG TABLET (FP) PO SCH (10:08)
[2021-07-14] MEDS ORDERED: traMADol HCL 50 MG TABLET PO PRN (13:57)
[2021-07-14] MEDS: ONDANSETRON 4 MG/2 ML VIAL IVPUSH PRN (17:59)
[2021-07-14] MEDS ORDERED: VANCOMYCIN/WATER 1250 MG 1,250 MG/250 ML BAG IVPB SCH (20:00)
[2021-07-14] MEDS: VANCOMYCIN/WATER 1250 MG 1,250 MG/250 ML BAG IVPB SCH (22:14)
[2021-07-14] MEDS: DOCUSATE SODIUM 100 MG CAPSULE (FP) PO SCH (22:18)
[2021-07-15] MEDS: oxyCODONE HCL 5 MG TABLET PO PRN (03:25)
[2021-07-15] MEDS: ACETAMINOPHEN 500 MG TABLET (FP) PO PRN ×2 (06:22→18:50)
[2021-07-15 08:18] LABS: BASO % 0.3 % (0-2.0); EOS % 2.2 % (0-4.5); HEMOGLOBIN 7.6 GM/dL (10.7-15.3); LYMPH % 16.1 % (8-40); MCH 23.8 pg (25.7-33.7); MCHC 33.2 g/dl (32.0-36.0); MEAN CELL VOLUME 71.7 fl (80-96); MEAN PLT VOLUME 6.7 fl (7.5-11.1); MONO % 3.8 % (3.8-10.2); NEUT % 77.6 % (42.8-82.8); PLATELET COUNT 536 10^3/uL (134-434); RBC 3.21 M/mm3 (3.60-5.2); RDW 19.1 % (11.6-15.6); WHITE BLOOD COUNT 11.9 K/mm3 (4.0-10.0)
[2021-07-15 08:44] LABS: ALBUMIN 2.7 g/dl (3.4-5.0); CALCIUM 8.5 mg/dL (8.5-10.1); MAGNESIUM 1.9 mg/dL (1.8-2.4)
[2021-07-15 08:48] LABS: BILIRUBIN,TOTAL 0.4 mg/dL (0.2-1); CREATININE 1.6 mg/dL (0.55-1.3)
[2021-07-15 08:49] LABS: TOT PROT 6.9 g/dl (6.4-8.2)
[2021-07-15] MEDS: FERROUS SO4 325 MG TABLET (FP) PO SCH (10:32)
[2021-07-15] MEDS: ERTAPENEM SODIUM 1 GM in SODIUM CHLORIDE 50 ML IVPB SCH (10:34)
[2021-07-15] MEDS: traMADol HCL 50 MG TABLET PO PRN ×3 (10:35→22:33)
[2021-07-15] MEDS ORDERED: SODIUM CHLORIDE 0.45% 1,000 ML IV SCH (14:00)
[2021-07-15] MEDS: ONDANSETRON 4 MG/2 ML VIAL IVPUSH PRN (15:14)
[2021-07-15] MEDS: VANCOMYCIN/WATER 1250 MG 1,250 MG/250 ML BAG IVPB SCH (20:27)
[2021-07-15] MEDS: DOCUSATE SODIUM 100 MG CAPSULE (FP) PO SCH (21:05)
[2021-07-16 06:55] VITALS: PULSE 84
[2021-07-16 09:47] LABS: BASO % 0.3 % (0-2.0); EOS % 2.5 % (0-4.5); HEMATOCRIT 24.2 % (32.4-45.2); HEMOGLOBIN 8.1 GM/dL (10.7-15.3); LYMPH % 18.8 % (8-40); MCH 23.9 pg (25.7-33.7); MCHC 33.5 g/dl (32.0-36.0); MEAN CELL VOLUME 71.4 fl (80-96); MEAN PLT VOLUME 6.8 fl (7.5-11.1); MONO % 4.4 % (3.8-10.2); PLATELET COUNT 608 10^3/uL (134-434); RBC 3.39 M/mm3 (3.60-5.2); RDW 18.8 % (11.6-15.6); WHITE BLOOD COUNT 10.8 K/mm3 (4.0-10.0)
[2021-07-16 10:11] LABS: ALBUMIN 2.9 g/dl (3.4-5.0); BLOOD UREA NITROGEN 16.6 mg/dL (7-18)
[2021-07-16 10:14] LABS: CREATININE 1.5 mg/dL (0.55-1.3)
[2021-07-16 10:16] LABS: BILIRUBIN,TOTAL 0.3 mg/dL (0.2-1); TOT PROT 7.5 g/dl (6.4-8.2)
[2021-07-16] MEDS: traMADol HCL 50 MG TABLET PO PRN (10:57)
[2021-07-16] MEDS: FERROUS SO4 325 MG TABLET (FP) PO SCH (10:58)
[2021-07-16] MEDS: ERTAPENEM SODIUM 1 GM in SODIUM CHLORIDE 50 ML IVPB SCH (10:59)
[2021-07-16 11:32] VITALS: BP 146/88; TEMP 99.9
== END 2021-07-16 14:47 | disposition home health service (06) | DRG 443 ==
LOC: JER 05:50 → JERBED 18:00 → J5S 07-11 10:15 → J8W 07-12 17:23
PROVIDERS: ADMIT Internal Medicine; ATTEND Nurse Practitioner Acute Care
PROC: 30233N1 Transfusion of Nonautologous Red Blood Cells into Peripheral Vein, Percutaneous Approach (ICD-10-PCS; 2021-07-10)
PROC: 0T788DZ Dilation of Bilateral Ureters with Intraluminal Device, Via Natural or Artificial Opening Endoscopic (ICD-10-PCS; 2021-07-11)
PROC: 0TP98DZ Removal of Intraluminal Device from Ureter, Via Natural or Artificial Opening Endoscopic (ICD-10-PCS; principal; 2021-07-11 15:00)
PROC: BT14ZZZ Fluoroscopy of Kidneys, Ureters and Bladder (ICD-10-PCS; 2021-07-11 15:00)
DX: T83.592A Infection and inflammatory reaction due to indwelling ureteral stent, initial encounter (principal); N13.1 Hydronephrosis with ureteral stricture, not elsewhere classified; D25.9 Leiomyoma of uterus, unspecified; N17.9 Acute kidney failure, unspecified; D64.9 Anemia, unspecified; D72.829 Elevated white blood cell count, unspecified; N39.0 Urinary tract infection, site not specified; E66.01 Morbid (severe) obesity due to excess calories; Z68.41 Body mass index [BMI] 40.0-44.9, adult; Z16.12 Extended spectrum beta lactamase (ESBL) resistance; F41.9 Anxiety disorder, unspecified; Y83.9 Surgical procedure, unspecified as the cause of abnormal reaction of the patient, or of later complication, without mention of misadventure at the time of the procedure; B96.89 Other specified bacterial agents as the cause of diseases classified elsewhere; N71.9 Inflammatory disease of uterus, unspecified; Z86.16 Personal history of COVID-19
CPT/HCPCS: 36415; 36430; 74177-TC; 76000-TC-FY; 80053; 81003; 82272; 82607; 82728; 83540; 83550; 83605; 83690; 83735; 84100; 84443; 84703; 85025; 85045; 85610; 85730; 86850; 86900; 86901; 86922; 87040; 87086; 87186; 88300-TC; 94010; 94760; 99285-25; C9803-CS; J1453; P9058; U0003; U0005

== ENCOUNTER 2021-07-17 08:54 | Day surgery (SDC) | payer OTHER ==
[2021-07-17 09:18] VITALS: TEMP 99.1
[2021-07-17] MEDS ORDERED: ERTAPENEM SODIUM 1 GM in SODIUM CHLORIDE 50 ML IVPB ONE (09:30)
[2021-07-17] MEDS ORDERED: ERTAPENEM SODIUM 1 GM VIAL ONE (09:44)
[2021-07-17] MEDS ORDERED: SODIUM CHLORIDE 50 ML IVPB ONE (09:44)
[2021-07-17 10:36] VITALS: BP 128/68; PULSE 88
== END 2021-07-17 10:36 | disposition home or self-care (01) ==
LOC: FINFUSION 08:54 → FM/S 08:57 → FINFUSION 10:36
PROVIDERS: ATTEND Internal Medicine Infectious Disease
DX: N39.0 Urinary tract infection, site not specified (principal); B96.89 Other specified bacterial agents as the cause of diseases classified elsewhere; E66.01 Morbid (severe) obesity due to excess calories; Z68.41 Body mass index [BMI] 40.0-44.9, adult; Z86.16 Personal history of COVID-19
CPT/HCPCS: 96365

== ENCOUNTER 2021-07-18 12:07 | Day surgery (SDC) | payer OTHER ==
[2021-07-18] MEDS ORDERED: SODIUM CHLORIDE 50 ML IVPB ONE (12:38)
[2021-07-18] MEDS ORDERED: ERTAPENEM SODIUM 1 GM VIAL ONE (12:38)
[2021-07-18 12:42] VITALS: BP 134/76; TEMP 98.3
[2021-07-18] MEDS ORDERED: ERTAPENEM SODIUM 1 GM in SODIUM CHLORIDE 50 ML IVPB ONE (12:45)
[2021-07-18 13:18] VITALS: PULSE 78
== END 2021-07-18 13:19 | disposition home or self-care (01) ==
LOC: FINFUSION 12:07 → EDSTATUS 12:10 → FM/S 12:11 → FINFUSION 13:19
PROVIDERS: ATTEND Internal Medicine Infectious Disease
DX: N39.0 Urinary tract infection, site not specified (principal); B96.89 Other specified bacterial agents as the cause of diseases classified elsewhere; E66.01 Morbid (severe) obesity due to excess calories; Z68.41 Body mass index [BMI] 40.0-44.9, adult; Z86.16 Personal history of COVID-19
CPT/HCPCS: 96365

== ENCOUNTER 2021-07-19 13:32 | Day surgery (SDC) | payer OTHER ==
[2021-07-19] MEDS ORDERED: ERTAPENEM SODIUM 1 GM in SODIUM CHLORIDE 50 ML IVPB ONE (14:00)
[2021-07-19] MEDS ORDERED: SODIUM CHLORIDE 50 ML IVPB ONE (14:22)
[2021-07-19] MEDS ORDERED: ERTAPENEM SODIUM 1 GM VIAL ONE (14:22)
[2021-07-19 15:34] VITALS: BP 137/90; PULSE 80; TEMP 97.7
== END 2021-07-19 15:45 | disposition home or self-care (01) ==
LOC: FINFUSION 13:32 → FM/S 13:38 → FINFUSION 15:45
PROVIDERS: ATTEND Internal Medicine Infectious Disease
DX: N39.0 Urinary tract infection, site not specified (principal); B96.89 Other specified bacterial agents as the cause of diseases classified elsewhere; E66.01 Morbid (severe) obesity due to excess calories; Z68.41 Body mass index [BMI] 40.0-44.9, adult; Z86.16 Personal history of COVID-19
CPT/HCPCS: 96365

== ENCOUNTER 2021-07-20 14:07 | Day surgery (SDC) | payer OTHER ==
[2021-07-20] MEDS ORDERED: ERTAPENEM SODIUM 1 GM/50 ML PRE-DOCKED IVPB SCH (14:45)
[2021-07-20 15:48] VITALS: TEMP 97.8
[2021-07-20 15:52] VITALS: BP 128/67; PULSE 87
== END 2021-07-20 15:55 | disposition home or self-care (01) ==
LOC: FINFUSION 14:07 → FM/S 14:12 → FINFUSION 15:55
PROVIDERS: ATTEND Internal Medicine Infectious Disease
DX: N39.0 Urinary tract infection, site not specified (principal); B96.89 Other specified bacterial agents as the cause of diseases classified elsewhere; E66.01 Morbid (severe) obesity due to excess calories; Z68.41 Body mass index [BMI] 40.0-44.9, adult; Z86.16 Personal history of COVID-19
CPT/HCPCS: 96365

== ENCOUNTER 2021-07-21 12:21 | Day surgery (SDC) | payer OTHER ==
[2021-07-21] MEDS ORDERED: ERTAPENEM SODIUM 1 GM in SODIUM CHLORIDE 50 ML IVPB ONE (13:00)
[2021-07-21 13:08] VITALS: TEMP 98
[2021-07-21 13:40] VITALS: BP 140/74; PULSE 88
== END 2021-07-21 13:40 | disposition home or self-care (01) ==
LOC: FINFUSION 12:21 → FM/S 12:21 → FINFUSION 13:40
PROVIDERS: ATTEND Internal Medicine Infectious Disease
DX: N39.0 Urinary tract infection, site not specified (principal); B96.89 Other specified bacterial agents as the cause of diseases classified elsewhere; E66.01 Morbid (severe) obesity due to excess calories; Z68.41 Body mass index [BMI] 40.0-44.9, adult; Z86.16 Personal history of COVID-19
CPT/HCPCS: 96365

== ENCOUNTER 2021-07-22 12:25 | Day surgery (SDC) | payer OTHER ==
[2021-07-22 12:59] VITALS: TEMP 97.8
[2021-07-22] MEDS ORDERED: ERTAPENEM SODIUM 1 GM in SODIUM CHLORIDE 50 ML IVPB ONE (13:00)
[2021-07-22] MEDS ORDERED: ERTAPENEM SODIUM 1 GM VIAL ONE (13:01)
[2021-07-22] MEDS ORDERED: SODIUM CHLORIDE 50 ML IVPB ONE (13:01)
[2021-07-22 14:15] VITALS: BP 142/70; PULSE 87
== END 2021-07-22 13:50 | disposition home or self-care (01) ==
LOC: FINFUSION 12:25 → FM/S 12:26 → FINFUSION 13:50
PROVIDERS: ATTEND Internal Medicine Infectious Disease
DX: N39.0 Urinary tract infection, site not specified (principal); B96.89 Other specified bacterial agents as the cause of diseases classified elsewhere; E66.01 Morbid (severe) obesity due to excess calories; Z68.41 Body mass index [BMI] 40.0-44.9, adult; Z86.16 Personal history of COVID-19
CPT/HCPCS: 96365

== ENCOUNTER 2021-07-23 10:31 | Day surgery (SDC) | payer OTHER ==
[2021-07-23] MEDS ORDERED: ERTAPENEM SODIUM 1 GM in SODIUM CHLORIDE 50 ML IVPB ONE (11:00)
[2021-07-23 11:01] VITALS: BP 151/62; PULSE 18; TEMP 98.6
[2021-07-23] MEDS ORDERED: ERTAPENEM SODIUM 1 GM VIAL ONE (11:16)
[2021-07-23] MEDS ORDERED: SODIUM CHLORIDE 50 ML IVPB ONE (11:16)
== END 2021-07-23 12:44 | disposition home or self-care (01) ==
LOC: FINFUSION 10:31 → FM/S 10:34 → FINFUSION 12:44
PROVIDERS: ATTEND Internal Medicine Infectious Disease
DX: N39.0 Urinary tract infection, site not specified (principal); B96.89 Other specified bacterial agents as the cause of diseases classified elsewhere; E66.01 Morbid (severe) obesity due to excess calories; Z68.41 Body mass index [BMI] 40.0-44.9, adult; Z86.16 Personal history of COVID-19
CPT/HCPCS: 96365

== ENCOUNTER 2021-11-29 04:03 | Day surgery (SDC) | payer OTHER ==
[2021-11-28 10:21] VITALS: BMI 39.8
[2021-11-29] MEDS ORDERED: MIDAZOLAM HCL 2 MG/2 ML SINGLE DOSE VIAL ONE (11:46)
[2021-11-29] MEDS ORDERED: PROPOFOL 20 ML ONE ×2 (11:47→13:07)
[2021-11-29] MEDS ORDERED: ceFAZolin SODIUM 1 GM VIAL IVPB ONE (12:55)
[2021-11-29] MEDS ORDERED: ONDANSETRON 4 MG/2 ML VIAL IVPUSH PRN (13:33)
[2021-11-29] MEDS ORDERED: PROMETHAZINE HCL 25 MG/1 ML VIAL IVPUSH PRN (13:33)
[2021-11-29] MEDS ORDERED: ONDANSETRON 4 MG/2 ML VIAL ONE (13:33)
[2021-11-29] MEDS ORDERED: DEXAMETHASONE SOD PHOSPHATE 4 MG/1 ML VIAL ONE ×2 (13:33→13:36)
[2021-11-29] MEDS ORDERED: DEXAMETHASONE SOD PHOSPHATE 4 MG/1 ML VIAL IVPUSH ONE (13:34)
[2021-11-29] MEDS ORDERED: oxyCODONE HCL 5 MG TABLET PO ONE (14:34)
[2021-11-29 14:35] VITALS: RESP 20; TEMP 97.9
[2021-11-29] MEDS ORDERED: oxyCODONE HCL 10 MG SUSTAINED ACTING TABLET ONE (14:37)
[2021-11-29 15:21] VITALS: BP 138/64; PULSE 85
== END 2021-11-29 14:59 | disposition home or self-care (01) ==
LOC: JASU-SURG 04:03
PROVIDERS: ATTEND Urology
PROC: 0T9880Z Drainage of Bilateral Ureters with Drainage Device, Via Natural or Artificial Opening Endoscopic (ICD-10-PCS; principal; 2021-11-29 12:00)
PROC: 0WJR8ZZ Inspection of Genitourinary Tract, Via Natural or Artificial Opening Endoscopic Approach (ICD-10-PCS; 2021-11-29 12:00)
DX: N13.30 Unspecified hydronephrosis (principal); D25.9 Leiomyoma of uterus, unspecified
CPT/HCPCS: 76000-TC-FY; 81025; 94760; C2617

== ENCOUNTER 2022-06-13 04:08 | Day surgery (SDC) | payer OTHER ==
[2022-06-12 08:54] VITALS: BMI 38.0
[2022-06-13] MEDS ORDERED: MIDAZOLAM HCL 2 MG/2 ML SINGLE DOSE VIAL ONE (11:11)
[2022-06-13] MEDS ORDERED: ceFAZolin SODIUM 1 GM VIAL IVPB ONE (11:17)
[2022-06-13] MEDS ORDERED: DEXAMETHASONE SOD PHOSPHATE 4 MG/1 ML VIAL ONE (11:21)
[2022-06-13] MEDS ORDERED: ACETAMINOPHEN 1000 MG/100 ML BAG IVPB ONE (11:48)
[2022-06-13] MEDS ORDERED: oxyCODONE HCL 5 MG TABLET PO PRN (11:48)
[2022-06-13] MEDS ORDERED: ONDANSETRON 4 MG/2 ML VIAL IVPUSH PRN (11:48)
[2022-06-13] MEDS ORDERED: LACTATED RINGERS SOLUTION 1,000 ML IV SCH (12:00)
[2022-06-13] MEDS ORDERED: ONDANSETRON 4 MG/2 ML VIAL ONE (12:37)
[2022-06-13 13:00] VITALS: RESP 16
[2022-06-13 13:22] VITALS: PULSE 89; TEMP 98
[2022-06-13 14:07] VITALS: BP 128/50
== END 2022-06-13 14:00 | disposition home or self-care (01) ==
LOC: JASU-SURG 04:08
PROVIDERS: ATTEND Urology
PROC: 0TPB8DZ Removal of Intraluminal Device from Bladder, Via Natural or Artificial Opening Endoscopic (ICD-10-PCS; 2022-06-13)
PROC: 0T7B8DZ Dilation of Bladder with Intraluminal Device, Via Natural or Artificial Opening Endoscopic (ICD-10-PCS; 2022-06-13)
PROC: 0T788DZ Dilation of Bilateral Ureters with Intraluminal Device, Via Natural or Artificial Opening Endoscopic (ICD-10-PCS; principal; 2022-06-13 12:00)
PROC: 0TP98DZ Removal of Intraluminal Device from Ureter, Via Natural or Artificial Opening Endoscopic (ICD-10-PCS; 2022-06-13 12:00)
DX: N13.30 Unspecified hydronephrosis (principal); N18.9 Chronic kidney disease, unspecified
CPT/HCPCS: 76000-TC-FY; 81025; 94760; C2617

== ENCOUNTER 2023-01-13 03:31 | Day surgery (SDC) | payer OTHER ==
[2023-01-08 16:00] VITALS: BMI 38.9
[2023-01-13 06:49] VITALS: BP 140/67; PULSE 90; RESP 20; TEMP 98.9
[2023-01-13] MEDS ORDERED: ceFAZolin SODIUM 1 GM VIAL IVPB ONE (07:26)
[2023-01-13] MEDS ORDERED: IOVERSOL 300 MG/ML ML IV ONE (07:27)
== END 2023-01-13 08:00 | disposition home or self-care (01) ==
LOC: JASU-SURG 03:31
PROVIDERS: ATTEND Urology
PROC: 3E033GC Introduction of Other Therapeutic Substance into Peripheral Vein, Percutaneous Approach (ICD-10-PCS; principal; 2023-01-13)
DX: Z53.8 Procedure and treatment not carried out for other reasons (principal)
CPT/HCPCS: 81025

== ENCOUNTER 2023-02-12 04:28 | Day surgery (SDC) | payer OTHER ==
[2023-02-04 12:48] VITALS: BMI 38.9
[2023-02-12] MEDS ORDERED: PROPOFOL 20 ML ONE (14:09)
[2023-02-12] MEDS ORDERED: MIDAZOLAM HCL 2 MG/2 ML SINGLE DOSE VIAL ONE (14:09)
[2023-02-12] MEDS ORDERED: LIDOCAINE HCL/PF 2% SDV 5ML VIAL ONE (14:09)
[2023-02-12] MEDS ORDERED: ceFAZolin SODIUM 1 GM VIAL IVPB ONE (14:31)
[2023-02-12] MEDS ORDERED: ONDANSETRON 4 MG/2 ML VIAL ONE (14:35)
[2023-02-12] MEDS ORDERED: DEXAMETHASONE SOD PHOSPHATE 4 MG/1 ML VIAL ONE (14:35)
[2023-02-12] MEDS ORDERED: KETOROLAC TROMETHAMINE 30 MG/1 ML VIAL ONE (14:41)
[2023-02-12] MEDS ORDERED: ACETAMINOPHEN INJECTION 100 ML IVPB ONE (15:04)
[2023-02-12] MEDS ORDERED: oxyCODONE HCL 5 MG TABLET PO PRN (15:07)
[2023-02-12] MEDS ORDERED: ONDANSETRON 4 MG/2 ML VIAL IVPUSH PRN (15:07)
[2023-02-12] MEDS ORDERED: ACETAMINOPHEN 1000 MG/100 ML BAG IVPB ONE (15:07)
[2023-02-12] MEDS ORDERED: LACTATED RINGERS SOLUTION 1,000 ML IV SCH (15:15)
[2023-02-12 17:05] VITALS: BP 105/69; PULSE 78; RESP 18; TEMP 96.9
== END 2023-02-12 17:40 | disposition home or self-care (01) ==
LOC: JASU-SURG 04:28
PROVIDERS: ATTEND Urology
PROC: 0T788DZ Dilation of Bilateral Ureters with Intraluminal Device, Via Natural or Artificial Opening Endoscopic (ICD-10-PCS; principal; 2023-02-12 14:00)
DX: N13.30 Unspecified hydronephrosis (principal); D25.9 Leiomyoma of uterus, unspecified
CPT/HCPCS: 76000-TC-FY; 81025; 94760; C2617

== ENCOUNTER 2023-08-27 04:26 | Day surgery (SDC) | payer OTHER ==
[2023-08-24 14:07] VITALS: BMI 37.2
[2023-08-27] MEDS ORDERED: PROPOFOL 20 ML ONE ×3 (12:48→13:50)
[2023-08-27] MEDS ORDERED: MIDAZOLAM HCL 2 MG/2 ML SINGLE DOSE VIAL ONE (12:48)
[2023-08-27] MEDS ORDERED: ONDANSETRON 4 MG/2 ML VIAL IVPUSH PRN (13:14)
[2023-08-27] MEDS ORDERED: ACETAMINOPHEN 325 MG TABLET (FP) PO PRN (13:14)
[2023-08-27] MEDS: ceFAZolin 2 GRAM PREMIX BAG IVPB ONE (13:33)
[2023-08-27] MEDS: IOHEXOL 300 MG/ML INFUS..BTL IV ONE (13:53)
[2023-08-27] MEDS: LACTATED RINGERS SOLUTION 1,000 ML IV SCH (15:42)
[2023-08-27 15:58] VITALS: TEMP 97.5
[2023-08-27] MEDS: oxyCODONE HCL 5 MG TABLET PO PRN (15:59)
[2023-08-27] MEDS ORDERED: oxyCODONE HCL 5 MG TABLET ONE (16:00)
[2023-08-27 16:37] VITALS: BP 129/81; PULSE 67; RESP 20
== END 2023-08-27 16:25 | disposition home or self-care (01) ==
LOC: JASU-SURG 04:26
PROVIDERS: ATTEND Urology
PROC: 0T788DZ Dilation of Bilateral Ureters with Intraluminal Device, Via Natural or Artificial Opening Endoscopic (ICD-10-PCS; principal; 2023-08-27 13:00)
DX: N13.30 Unspecified hydronephrosis (principal)
CPT/HCPCS: 76000-TC-FY; 81025; 94760; C2617

== ENCOUNTER 2023-12-06 09:46 | Day surgery (SDC) | payer OTHER ==
[2023-12-06] MEDS ORDERED: ONDANSETRON 4 MG/2 ML VIAL ONE (10:34)
[2023-12-06] MEDS: ONDANSETRON 4 MG/2 ML VIAL IVPUSH ONE (10:51)
[2023-12-06] MEDS: SODIUM CHLORIDE 0.9% 500 ML INFUS.BAG IV ONE (10:51)
[2023-12-06 11:05] LABS: BASO % 0.9 % (0-2.0); EOS % 1.3 % (0-4.5); HEMATOCRIT 33.6 % (32.4-45.2); HEMOGLOBIN 10.5 GM/dL (10.7-15.3); LYMPH % 25.6 % (8-40); MCH 21.6 pg (25.7-33.7); MCHC 31.4 g/dl (32.0-36.0); MEAN CELL VOLUME 68.9 fl (80-96); MEAN PLT VOLUME 7.8 fl (7.5-11.1); MONO % 4.6 % (3.8-10.2); NEUT % 67.6 % (42.8-82.8); PLATELET COUNT 494 10^3/uL (134-434); RBC 4.87 M/mm3 (3.60-5.2); RDW 16.8 % (11.6-15.6); WHITE BLOOD COUNT 8.3 K/mm3 (4.0-10.0)
[2023-12-06 11:05] LABS: EPI CELLS 28 /uL (0-25.1); HYALINE CASTS 5 /uL (0-3.1); PH,URINE 7.5 (5.0-8.0); URINE APPEARANCE CLOUDY; URINE BACTERIA 762 /uL (0-1359); URINE BILIRUBIN NEGATIVE (NEGATIVE); URINE COLOR YELLOW; URINE GLUCOSE (UA) NEGATIVE (NEGATIVE); URINE KETONE NEGATIVE (NEGATIVE); URINE LEUK ESTERASE 3+ (NEGATIVE); URINE NITRITE NEGATIVE (NEGATIVE); URINE PROTEIN 2+ (NEGATIVE); URINE RBC 80 /uL (0-23.9); URINE UROBILINOGEN 0.2 mg/dL (0.2-1.0); URINE WBC 927 /uL (0-25.8)
[2023-12-06 11:33] LABS: POTASSIUM 3.5 mmol/L (3.5-5.1)
[2023-12-06 11:34] LABS: ALBUMIN 4.2 g/dl (3.4-5.0); BLOOD UREA NITROGEN 15.4 mg/dL (7-18); CALCIUM 9.6 mg/dL (8.5-10.1)
[2023-12-06 11:37] LABS: CREATININE 1.9 mg/dL (0.55-1.3)
[2023-12-06 11:39] LABS: BILIRUBIN,TOTAL 0.5 mg/dL (0.2-1); TOT PROT 8.1 g/dl (6.4-8.2)
[2023-12-06 12:19] LABS: HIV INTERPRETATION NEGATIVE (NEGATIVE)
[2023-12-06 12:26] LABS: ANISOCYTOSIS 0; MACROCYTOSIS 0
[2023-12-06] MEDS ORDERED: CEFTRIAXONE 1 GM/50 ML BAG ONE (14:21)
[2023-12-06] MEDS: CEFTRIAXONE 1 G/50 ML PREMIX 50 ML IVPB ONE (15:05)
[2023-12-06] MEDS: ACETAMINOPHEN 1000 MG/100 ML BAG IVPB ONE ×2 (15:33→18:38)
[2023-12-06] MEDS ORDERED: ACETAMINOPHEN INJECTION 100 ML ONE (18:31)
[2023-12-06] MEDS ORDERED: ACETAMINOPHEN 325 MG TABLET (FP) PO PRN (19:07)
[2023-12-06] MEDS ORDERED: oxyCODONE HCL 5 MG TABLET PO PRN (19:12)
[2023-12-06] MEDS: ONDANSETRON *ODT* 4 MG TABLET SL PRN (20:11)
[2023-12-06] MEDS: ACETAMINOPHEN 325 MG TABLET (FP) PO PRN (23:55)
[2023-12-07 02:36] VITALS: BMI 37.6
[2023-12-07 09:47] LABS: INR 1.01 (0.83-1.09); PROTHROMBIN TIME (PATIENT) 11.4 SEC (9.7-13.0)
[2023-12-07 09:50] LABS: ACTIVATED PTT 29.7 SECONDS (25.2-36.5)
[2023-12-07 09:51] LABS: MCH 22.6 pg (25.7-33.7); MCHC 33.2 g/dl (32.0-36.0); MEAN CELL VOLUME 68.1 fl (80-96); PLATELET COUNT 437 10^3/uL (134-434); RBC 4.84 M/mm3 (3.60-5.2); WHITE BLOOD COUNT 7.7 K/mm3 (4.0-10.0)
[2023-12-07 10:09] LABS: ALBUMIN 3.8 g/dl (3.4-5.0); CALCIUM 9.4 mg/dL (8.5-10.1)
[2023-12-07 10:10] LABS: BLOOD UREA NITROGEN 13.2 mg/dL (7-18)
[2023-12-07 10:13] LABS: CREATININE 1.8 mg/dL (0.55-1.3)
[2023-12-07 10:14] LABS: BILIRUBIN,TOTAL 0.3 mg/dL (0.2-1); TOT PROT 7.4 g/dl (6.4-8.2)
[2023-12-07] MEDS: CEFTRIAXONE 1 G/50 ML PREMIX 50 ML IVPB SCH (11:45)
[2023-12-07] MEDS: CEFTRIAXONE 1 GM in DEXTROSE 5%-WATER - 50 ML IVPB SCH (11:46)
[2023-12-07] MEDS ORDERED: SODIUM CHLORIDE 1,000 ML IV SCH (13:00)
[2023-12-07] MEDS ORDERED: LIDOCAINE HCL/PF 2% SDV 5ML VIAL ONE (13:55)
[2023-12-07] MEDS ORDERED: MIDAZOLAM HCL 2 MG/2 ML SINGLE DOSE VIAL ONE (13:56)
[2023-12-07] MEDS ORDERED: PROPOFOL 20 ML ONE ×3 (13:56→15:29)
[2023-12-07] MEDS ORDERED: DEXAMETHASONE SOD PHOSPHATE 4 MG/1 ML VIAL ONE (15:16)
[2023-12-07] MEDS ORDERED: ONDANSETRON 4 MG/2 ML VIAL ONE ×2 (15:16→16:04)
[2023-12-07] MEDS ORDERED: KETOROLAC TROMETHAMINE 30 MG/1 ML VIAL ONE (15:16)
[2023-12-07] MEDS: ONDANSETRON 4 MG/2 ML VIAL IVPUSH PRN (16:08)
[2023-12-07] MEDS: SODIUM CHLORIDE 1,000 ML IV SCH (16:09)
[2023-12-07 16:35] VITALS: RESP 18
[2023-12-07] MEDS: oxyCODONE HCL 5 MG TABLET PO PRN (22:06)
[2023-12-08] MEDS: ACETAMINOPHEN 325 MG TABLET (FP) PO PRN (03:20)
[2023-12-08] MEDS: ONDANSETRON *ODT* 4 MG TABLET SL PRN (09:14)
[2023-12-08] MEDS: CEFTRIAXONE 1 G/50 ML PREMIX 50 ML IVPB SCH (09:15)
[2023-12-08] MEDS: POLYETHYLENE GLYCOL (HEALTHYLAX) 3350 17 GM PACKET PO SCH (11:42)
[2023-12-08] MEDS: TRIMETHOBENZAMIDE HCL 200MG/2ML INJ IM ONE (14:53)
[2023-12-09 09:49] LABS: HEMATOCRIT 28.7 % (32.4-45.2); HEMOGLOBIN 9.2 GM/dL (10.7-15.3); MCH 21.7 pg (25.7-33.7); MCHC 31.9 g/dl (32.0-36.0); MEAN CELL VOLUME 67.9 fl (80-96); MEAN PLT VOLUME 7.7 fl (7.5-11.1); PLATELET COUNT 371 10^3/uL (134-434); RBC 4.22 M/mm3 (3.60-5.2); RDW 17.1 % (11.6-15.6); WHITE BLOOD COUNT 7.7 K/mm3 (4.0-10.0)
[2023-12-09 10:27] LABS: POTASSIUM 3.6 mmol/L (3.5-5.1)
[2023-12-09 10:31] LABS: ALBUMIN 3.5 g/dl (3.4-5.0); BLOOD UREA NITROGEN 16.6 mg/dL (7-18); CALCIUM 8.6 mg/dL (8.5-10.1)
[2023-12-09 10:34] LABS: CREATININE 1.6 mg/dL (0.55-1.3)
[2023-12-09 10:35] LABS: BILIRUBIN,TOTAL 0.2 mg/dL (0.2-1); TOT PROT 6.7 g/dl (6.4-8.2)
[2023-12-09] MEDS: POLYETHYLENE GLYCOL (HEALTHYLAX) 3350 17 GM PACKET PO SCH (11:03)
[2023-12-09] MEDS: BISACODYL 10 MG SUPP.RECT PR ONE (15:35)
[2023-12-09] MEDS: MAGNESIUM HYDROX 2400MG/30ML ORAL SUSPENSION 30 ML CUP PO ONE (18:04)
[2023-12-10 10:24] LABS: BASO % 0.4 % (0-2.0); EOS % 2.8 % (0-4.5); HEMATOCRIT 30.4 % (32.4-45.2); HEMOGLOBIN 9.6 GM/dL (10.7-15.3); LYMPH % 28.5 % (8-40); MCH 21.8 pg (25.7-33.7); MCHC 31.4 g/dl (32.0-36.0); MEAN CELL VOLUME 69.3 fl (80-96); MEAN PLT VOLUME 8.1 fl (7.5-11.1); MONO % 4.5 % (3.8-10.2); NEUT % 63.8 % (42.8-82.8); PLATELET COUNT 374 10^3/uL (134-434); RBC 4.39 M/mm3 (3.60-5.2); RDW 16.9 % (11.6-15.6); WHITE BLOOD COUNT 7.5 K/mm3 (4.0-10.0)
[2023-12-10 10:44] LABS: ALBUMIN 3.4 g/dl (3.4-5.0); CALCIUM 8.9 mg/dL (8.5-10.1)
[2023-12-10 10:45] LABS: BLOOD UREA NITROGEN 13.1 mg/dL (7-18); MAGNESIUM 1.9 mg/dL (1.8-2.4)
[2023-12-10 10:48] LABS: CREATININE 1.6 mg/dL (0.55-1.3); PHOSPHOROUS 2.8 mg/dL (2.5-4.9)
[2023-12-10 10:49] LABS: BILIRUBIN,TOTAL 0.4 mg/dL (0.2-1); TOT PROT 6.6 g/dl (6.4-8.2)
[2023-12-10] MEDS: Methylnaltrexone Bromide 12 MG/0.6 ML KIT SQ ONE (11:20)
[2023-12-10 13:47] VITALS: BP 101/67; PULSE 75; TEMP 97.5
[2023-12-11] MEDS ORDERED: FLUoxetine HCL 10 MG CAPSULE PO SCH (10:00)
== END 2023-12-10 18:53 | disposition home or self-care (01) ==
LOC: JER 09:46 → UNDOADMIN 16:04 → JERBED 16:04 → J8W 22:55 → JASUSAT 12-07 13:11 → SUATTDRO 12-07 13:11 → J8W 12-07 13:16 → J2C 12-07 15:40 → J6S 12-07 17:06 → JASUSAT 12-10 18:53
PROVIDERS: ATTEND Internal Medicine
PROC: 3E033GC Introduction of Other Therapeutic Substance into Peripheral Vein, Percutaneous Approach (ICD-10-PCS; 2023-12-07)
PROC: 3E023GC Introduction of Other Therapeutic Substance into Muscle, Percutaneous Approach (ICD-10-PCS; 2023-12-07)
PROC: 3E03329 Introduction of Other Anti-infective into Peripheral Vein, Percutaneous Approach (ICD-10-PCS; principal; 2023-12-07 14:00)
PROC: 3E033NZ Introduction of Analgesics, Hypnotics, Sedatives into Peripheral Vein, Percutaneous Approach (ICD-10-PCS; 2023-12-07 14:00)
DX: N13.30 Unspecified hydronephrosis (principal); M54.50 Low back pain, unspecified; R11.2 Nausea with vomiting, unspecified; M54.6 Pain in thoracic spine
CPT/HCPCS: 36415; 74018-TC-FY; 74176-TC; 76000-TC-FY; 76830-TC; 80053; 81003; 83690; 83735; 84100; 84703; 85025; 85027; 85610; 85730; 86803; 86850; 86870; 86880; 86900; 86901; 86902; 87086; 87389; 93005; 93010; 94760; 99285-25; C2617; J0131; Q0162

== ENCOUNTER 2024-09-08 06:26 | Day surgery (SDC) | payer OTHER ==
[2024-09-02 12:00] VITALS: BMI 39.3
[2024-09-08] MEDS ORDERED: MIDAZOLAM HCL 2 MG/2 ML SINGLE DOSE VIAL ONE (13:23)
[2024-09-08] MEDS ORDERED: PROPOFOL 20 ML ONE (13:27)
[2024-09-08] MEDS ORDERED: LACTATED RINGERS SOLUTION 1,000 ML IV SCH (14:00)
[2024-09-08 16:15] VITALS: RESP 20; TEMP 97.3
[2024-09-08 16:31] VITALS: BP 127/82; PULSE 80
== END 2024-09-08 15:49 | disposition home or self-care (01) ==
LOC: JASU-SURG 06:26
PROVIDERS: ATTEND Urology
PROC: 0T788DZ Dilation of Bilateral Ureters with Intraluminal Device, Via Natural or Artificial Opening Endoscopic (ICD-10-PCS; principal; 2024-09-08 13:00)
DX: N13.30 Unspecified hydronephrosis (principal)
CPT/HCPCS: 76000-TC-FY; 88300-TC; 94760; C2617